=== PATIENT | female | born 1985 ===

== ENCOUNTER → 2019-02-11 | Outpatient (CLI) | payer OTHER | END | disposition home or self-care (01) | LOC: PRENATAL 11:00 | DX: O26.892 Other specified pregnancy related conditions, second trimester (principal); O09.92 Supervision of high risk pregnancy, unspecified, second trimester; Z36 Encounter for antenatal screening of mother ==

== ENCOUNTER 2019-06-16 15:30 | Inpatient (IN) | payer OTHER ==
[~2019-06-16] VITALS: Ht 157.5 cm; Wt 67.1 kg
[2019-07-06] MEDS ORDERED: [UNRECOGNIZED DRUG - OTHER] (08:23)
[2019-07-07] MEDS ORDERED: Tylenol Extra Streng PO (13:24)
[2019-07-07] MEDS ORDERED: PREPLUS CA-FE1 EACH PO (13:25)
[2019-07-07] MEDS ORDERED: DOCUSATE SODIU100 MG PO (13:25)
[2019-07-07] MEDS ORDERED: MAXFE CAPLET1 EACH PO (13:25)
[2019-07-07] MEDS ORDERED: IBUPROFEN800 MG PO (13:25)
== END 2019-07-07 13:55 | disposition home or self-care (01) | DRG 768 ==
LOC: O/R 15:30 → LDR 07-05 11:17 → SURG-SUITE 07-05 18:43 → OB/GYN 07-09 15:30
PROVIDERS: ADMIT Obstetrics & Gynecology
PROC: 0DQR0ZZ Repair Anal Sphincter, Open Approach (ICD-10-PCS; 2019-07-05)
PROC: 10907ZC Drainage of Amniotic Fluid, Therapeutic from Products of Conception, Via Natural or Artificial Opening (ICD-10-PCS; 2019-07-05)
PROC: 3E033VJ Introduction of Other Hormone into Peripheral Vein, Percutaneous Approach (ICD-10-PCS; 2019-07-05)
PROC: 4A1HXCZ Monitoring of Products of Conception, Cardiac Rate, External Approach (ICD-10-PCS; 2019-07-05)
PROC: 10E0XZZ Delivery of Products of Conception, External Approach (ICD-10-PCS; principal; 2019-07-05 18:00)
DX: O70.22 Third degree perineal laceration during delivery, IIIb (principal); Z37.0 Single live birth; Z3A.39 39 weeks gestation of pregnancy

== ENCOUNTER → 2019-07-01 | Outpatient (CLI) | payer OTHER ==
[~2019-07-01] MED LIST: DOCUSATE SODIU100 MG PO; IBUPROFEN800 MG PO; MAXFE CAPLET1 EACH PO; PREPLUS CA-FE1 EACH PO; Tylenol Extra Streng PO; [UNRECOGNIZED DRUG - OTHER]
== END | disposition home or self-care (01) ==
LOC: PRENATAL 10:00
DX: O26.843 Uterine size-date discrepancy, third trimester (principal); O36.63X1 Maternal care for excessive fetal growth, third trimester, fetus 1

== ENCOUNTER 2025-04-27 10:14 | Outpatient (CLI) | payer OTHER | END 2025-04-27 10:15 | disposition home or self-care (01) | LOC: PRENATAL 10:14 | PROVIDERS: ATTEND Obstetrics & Gynecology Maternal & Fetal Medicine | DX: Z76.1 Encounter for health supervision and care of foundling (principal) ==

== ENCOUNTER 2025-07-28 09:38 | Outpatient (CLI) | payer OTHER | END 2025-07-28 10:14 | disposition home or self-care (01) | LOC: NST 09:38 | PROVIDERS: ATTEND Obstetrics & Gynecology Gynecology | DX: Z34.83 Encounter for supervision of other normal pregnancy, third trimester (principal) ==

== ENCOUNTER 2025-08-08 09:14 | Outpatient (CLI) | payer OTHER | END 2025-08-08 10:29 | disposition home or self-care (01) | LOC: NST 09:14 | PROVIDERS: ATTEND Obstetrics & Gynecology | DX: Z34.83 Encounter for supervision of other normal pregnancy, third trimester (principal) ==

== ENCOUNTER 2025-08-25 08:06 | Outpatient (CLI) | payer OTHER | END 2025-08-25 09:03 | disposition home or self-care (01) | LOC: NST 08:06 | PROVIDERS: ATTEND Obstetrics & Gynecology Maternal & Fetal Medicine | DX: Z34.83 Encounter for supervision of other normal pregnancy, third trimester (principal) ==

== ENCOUNTER 2025-09-06 09:18 | Outpatient (CLI) | payer OTHER | END 2025-09-06 10:01 | disposition home or self-care (01) | LOC: NST 09:18 | PROVIDERS: ATTEND Obstetrics & Gynecology Gynecology | DX: Z34.83 Encounter for supervision of other normal pregnancy, third trimester (principal) ==